=== PATIENT | female | born 1935 | race Hispanic/Latino ===

== ENCOUNTER → 2020-06-24 | Outpatient (CLI) | payer MEDICARE | END | disposition home or self-care (01) | LOC: OIH 15:18 | PROVIDERS: ATTEND Otolaryngology Plastic Surgery within the Head & Neck | DX: R06.02 Shortness of breath (principal); M47.814 Spondylosis without myelopathy or radiculopathy, thoracic region; I70.0 Atherosclerosis of aorta | CPT/HCPCS: 71046 ==